=== PATIENT | male | born 1970 | race Caucasian/White ===

== ENCOUNTER 2016-12-13 06:25 | Day surgery (SDC) | payer MEDICARE, OTHER ==
[~2016-12-13] VITALS: Ht 175.3 cm; Wt 81.7 kg
[~2016-12-13 06:25] MED LIST: CYMBALTA60 MG PO; PROPRANOLOL HCL20 MG PO
[2016-12-13] MEDS ORDERED: LEVOTHYROXINE25 MCG PO (06:50)
[2016-12-13] MEDS ORDERED: BENTYL10 MG PO (06:50)
[2016-12-13] MEDS ORDERED: OXYCODON-ACETA1 EAC2 PO (10:30)
[2016-12-13] MEDS ORDERED: IBUPROFEN600 MG PO (10:30)
[2016-12-13] MEDS ORDERED: MAPAP325 MG PO (10:30)
[2016-12-14] MEDS ORDERED: TAMSULOSIN HCL0.4 MG PO (09:12)
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
== END 2016-12-14 09:55 | disposition home or self-care (01) ==
LOC: DS 06:25 → MS 17:00 → DS 12-14 09:55
PROVIDERS: Surgery
PROC: BF13YZZ Fluoroscopy of Gallbladder and Bile Ducts using Other Contrast (ICD-10-PCS; 2016-12-13)
PROC: 0FJB4ZZ Inspection of Hepatobiliary Duct, Percutaneous Endoscopic Approach (ICD-10-PCS; 2016-12-13)
PROC: 0FT44ZZ Resection of Gallbladder, Percutaneous Endoscopic Approach (ICD-10-PCS; principal; 2016-12-13 08:00)
DX: K80.10 Calculus of gallbladder with chronic cholecystitis without obstruction (principal); F32.9 Major depressive disorder, single episode, unspecified; G43.909 Migraine, unspecified, not intractable, without status migrainosus; E78.5 Hyperlipidemia, unspecified; E03.9 Hypothyroidism, unspecified; Z87.820 Personal history of traumatic brain injury; Z87.442 Personal history of urinary calculi; Z98.890 Other specified postprocedural states; Z90.49 Acquired absence of other specified parts of digestive tract
CPT/HCPCS: 00790; 51702; 51798; 74300; 88304; C1769; C1894; J0690; J1100; J1170; J1644; J1885; J2060; J2405; J2550; J2704; J3010; J7120; Q9967